=== PATIENT | male | born 1995 | race Two or more races ===

== ENCOUNTER 2024-07-17 18:16 | Emergency (ER) | payer MEDICAID, OTHER ==
[~2024-07-17] VITALS: Ht 185.4 cm; Wt 107.8 kg
[2024-07-17 18:45] VITALS: BP 129/85; PULSE 60; RESP 17; TEMP 98; O2SAT 97
[2024-07-17] MEDS: DexAMETHasone SOD PHOS 10MG/1ML VIAL INJ IM ONE (19:05)
[2024-07-17] MEDS ORDERED: FEXO-42 PO (19:12)
[2024-07-17] MEDS ORDERED: MOXI0.5D9 OP (19:12)
--- NOTE | 2024-07-17 19:12 | ED.PDOC ---
Eye-HPI HPI Comments This is a 28-year-old male presents to the ED with bilateral eye redness and itchiness. Patient states itchiness and redness in grainy feeling started in his left eye and now it is in his right. Notes possible allergic reaction to abdi. Has some purulent drainage. He denies any vision changes, or possible injury. Chief Complaint: Eye Problem Time Seen by MD: 18:19 Reviewed Notes: Nurses Notes, Medications, Allergies Allergies: Coded Allergies: NO KNOWN ALLERGIES (Unverified , 07/17/24) Information Source: Patient Mode of Arrival: Ambulatory Past Medical History PAST MEDICAL HISTORY: Denies Surgical History: Denies all surgeries Family History Family History: Reviewed,noncontributory to illness Social History Smoker: Non-Smoker Alcohol: Denies ETOH Use Drugs: Denies Drug Use Constitutional: denies: chills, diaphoresis, fatigue, fever, malaise, sweats, weakness, others EENTM: reports: eye redness Respiratory: denies: cough, hemoptysis, orthopnea, SOB at rest, shortness of breath, SOB with excertion, stridor, wheezing, others Cardiovascular: denies: chest pain, dizzy spells, diaphoresis, Dyspnea on exertion, edema, irregular heart beat, left arm pain, lightheadedness, palpitations, PND, syncope, others Gastrointestinal: denies: abdomen distended, abdominal pain, blood streaked bowels, constipated, diarrhea, dysphagia, difficulty swallowing, hematemesis, melena, nausea, poor appetite, poor fluid intake, rectal bleeding, rectal pain, vomiting, others Genitourinary: denies: burning, dysuria, flank pain, frequency, hematuria, i ncontinence, penile discharge, penile sore, pain, testicle pain, testicle swelling, urgency, others Neurological: denies: dizziness, fainting, headache, left sided numbness, left sided weakness, numbness, paresthesia, pre-existing deficit, right sided numbness, right sided weakness, seizure, speech problems, tingling, tremors, weakness, others Musculoskeletal: denies: back pain, gout, joint pain, joint swelling, muscle pain, muscle stiffness, neck pain, others Integumetry: denies: bruises, change in color, change in hair/nails, dryness, laceration, lesions, lumps, rash, wounds, others Allergic/Immunocompromised: denies: Difficulty Healing, Frequent Infections, Hives, Itching, others Hematologic/Lymphatic: denies: anemia, blood clots, easy bleeding, easy bruising, swollen glands, others Endocrine: denies: excessive hunger, excessive sweating, excessive thirst, excessive urination, flushing, intolerance to cold, intolerance to heat, unexplained weight gain, unexplained weight loss, others Psychiatric: denies: anxiety, bipolar disorder, depression, hopeless, panic disorder, schizophrenia, sleepless, suicidal, others Physical Exam General Appearance: No Apparent Distress, Normal HEENT: Normal ENT Inspection, Pharynx Normal, TMs Normal, Other (Bilateral eyes hyperemia conjunctiva. No noted drainage or crusting. No Noted obvious foreign body) Neck: Full Range of Motion, Non-Tender Respiratory: Lungs Clear, No Respiratory Distress, Normal Breath Sounds Cardiovascular: No Murmur, Normal Peripheral Pulses, Regular Rate/Rhythm Breast Exam: Deferred Gastrointestinal: Non Tender, Soft Genitalia: Deferred Pelvic: Deferred Rectal: Deferred Extremities: No calf tenderness, Normal range of motion Musculoskeletal : Apperance: Normal Neurologic: Alert, spray gun sizer II-XII nml as Tested, No Motor Deficits, Normal Affect, Normal Mood, No Sensory Deficits Cerebellar Function: Normal Reflexes: Normal Skin: Dry, Normal Color, Warm Lymphatic: No Adenopathy Was a procedure done? Was a procedure done?: No EENT DIFF Eye: Allergic, Bacterial X-Ray, Labs, Meds, VS Vital Signs Date Time Temp Pulse Resp B/P (MAP) Pulse Ox O2 Delivery O2 Flow Rate FiO2 07/17/24 18:45 60 17 97 Room Air 07/17/24 18:45 98.0 60 17 129/85 (100) 97 98.0 07/17/24 18:40 98.2 60 17 129/85 (100) 97 X-Ray, Labs, Meds, VS Comment Likely allergic reaction to abdi however possible bacterial. Patient given Decadron 10 mg IM. Start trial of moxifloxacin bacterial eye drops x7 days. Advised to follow up with his PCP 2-3 days as necessary. ER return precautions given patient indicated understanding agrees with discharge plan of care. Time of 1ST Reevaluation: 19:12 Reevaluation 1ST: Improved Patient Education/Counseling: Diagnosis, Treatment, Prognosis, Need For Follow Up Family Education/Counseling: No Family Present Departure 1 Departure Time of Disposition: 19:08 Impression: Primary Impression: Bilateral conjunctivitis Qualified Codes: H10.33 - Unspecified acute conjunctivitis, bilateral Disposition: 01 HOME / SELF CARE / HOMELESS Condition: Stable e-Prescriptions Fexofenadine Hydrochloride (RAYMUNDO ALLERGY) 180 Mg Tab 1 TAB PO DAILY for 7 Days, #7 TAB Prov: CITLALY ZEPEDA 07/17/24 Moxifloxacin Hydrochloride (Moxifloxacin) 0.5 % Keith 1 DROP OP TID for 6 Days, #4 ML Instill 1 drop into both eyes 3 times daily x7 days Prov: CITLALY ZEPEDA 07/17/24 Discharged With: Self Critical Care Note Critical Care Time?: No Stability Stability form required: CITLALY Lutz Jul 17, 2024 19:12
== END 2024-07-17 19:27 | disposition home or self-care (01) ==
LOC: EEVIPCON 18:16 → ER 18:16
DX: H10.33 Unspecified acute conjunctivitis, bilateral (principal)
CPT/HCPCS: 96372; 99283; J1100